=== PATIENT | male | born 1960 | race Caucasian/White ===

== ENCOUNTER → 2017-01-18 | Outpatient (CLI) | payer MEDICARE ==
[~2017-01-18] MED LIST: ADVA250A INH; ALBU1AER INH; COMBAER INH; COUM2TAB PO; DUONI NEB; LIPI40TA PO; LORTA10 PO; PANT20 PO; SERT100 PO; VITA500S3 PO; WARF3TAB PO; Z.0.OXYGEN INH
--- NOTE | 2017-01-19 08:44 | RSPPFT ---
DATE OF PROCEDURE: 01/18/17 COMMENTS: Spirometry with FVC of 3.6 predicted 4.7, FEV1 of 2.3 predicted 3.4, FEV1/FVC ratio 63% predicted 72%. Air trapping is present with RV at 2.7 predicted 2.2. DLCO is 32% of predicted. IMPRESSION: On the basis of the above, patient has an obstructive lung defect with no acute responsiveness to acutely inhaled bronchodilator. Air trapping is noted with decreased DLCO.
== END ==
LOC: HRSP 10:11
PROVIDERS: ATTEND Internal Medicine Pulmonary Disease
DX: J84.10 Pulmonary fibrosis, unspecified (principal)
CPT/HCPCS: 94060; 94620; 94726; 94729

== ENCOUNTER 2017-03-08 08:54 | Emergency (ER) | payer MEDICARE ==
[~2017-03-08] VITALS: Ht 175.3 cm; Wt 107.0 kg
[2017-03-08 08:56] VITALS: BP 130/80; PULSE 94; RESP 17; TEMP 98.9; O2SAT 96
[2017-03-08 09:14] VITALS: BP 116/65; PULSE 79; RESP 18; O2SAT 94
[2017-03-08] MEDS ORDERED: SODIUM CHLORIDE 0.9% FLUSH 10 ML FLUSH IVF PRN (09:30)
[2017-03-08 10:10] LABS: AUTOMATED NEUTROPHIL # 7.2 TH/MM3 (1.8-7.7); BASOPHIL % 0.4 % (0.0-2.0); EOSINOPHIL # 0.1 TH/MM3 (0-0.4); EOSINOPHIL % 0.8 % (0.0-4.0); HEMATOCRIT 43.4 % (39.0-51.0); HEMO FLAGS DIFF FINAL; LYMPH % 20.1 % (9.0-44.0); LYMPHOCYTE # 2.1 TH/MM3 (1.0-4.8); MEAN CELL VOLUME 90.3 FL (80.0-100.0); MEAN CORPUSCULAR HEMOGLOBIN 30.7 PG (27.0-34.0); MONO % 8.7 % (0.0-8.0); PLATELET COUNT 296 TH/MM3 (150-450); RED BLOOD COUNT 4.81 MIL/MM3 (4.50-5.90); RED CELL DISTRIBUTION WIDTH 14.6 % (11.6-17.2); WHITE BLOOD COUNT 10.3 TH/MM3 (4.0-11.0)
--- NOTE | 2017-03-08 10:13 | RADRPT ---
EXAM DATE/TIME: 03/08/2017 09:41 [facility] COMPARISON: CT PULMONARY ANGIOGRAM, April 14, 2015, 12:22. CHEST SINGLE AP, April 14, 2015, 10:33. INDICATIONS : Chest pain. MEDICAL HISTORY : Chronic obstructive pulmonary disease. Emphysema. Idiopathic pulmonary fibrosis SURGICAL HISTORY : None. ENCOUNTER: Initial ACUITY: 1 day PAIN SCORE: 9/10 LOCATION: Bilateral chest FINDINGS: There is slight worsening of diffuse interstitial fibrosis compared to 04/14/15. No acute focal infi ltrate is noted. The heart is stable. Hardware is noted within the lower cervical spine. CONCLUSION: 1. Slight interval worsening of diffuse chronic interstitial fibrosis bilaterally. 2. No acute focal pulmonary or pulmonary vascular congestion. Syd Tee MD on March 08, 2017 at 9:52 Board Certified Radiologist. This report was verified electronically.
[2017-03-08 10:24] LABS: APTT (PATIENT) 49.8 SEC (24.3-30.1); INTERNATIONAL NORMALIZED RATIO 2.6 RATIO; PROTHROMBIN TIME - PATIENT 29.8 SEC (9.8-11.6)
[2017-03-08 10:25] VITALS: BP 136/81; PULSE 67; RESP 18; O2SAT 96
[2017-03-08 10:25] LABS: ANION GAP 11 MEQ/L (5-15); BICARBONATE 19.4 MEQ/L (21.0-32.0); BLOOD UREA NITROGEN 5 MG/DL (7-18); CHLORIDE 111 MEQ/L (98-107); GLOMERULAR FILTRATION RATE 94 ML/MIN (>89); SODIUM (NA) 141 MEQ/L (136-145)
[2017-03-08 10:29] LABS: CREATINE KINASE 626 U/L (39-308)
[2017-03-08 10:41] LABS: CKMB 3.8 NG/ML (0.5-3.6)
--- NOTE | 2017-03-08 12:43 | RADRPT ---
EXAM DATE/TIME: 03/08/2017 11:28 [facility] COMPARISON: US LEG BILATERAL VENOUS DOPPLER, July 07, 2014, 10:29. INDICATIONS : Bilateral leg pain. Patient stated he has been coughing up blood for one week, but it worsened today. MEDICAL HISTORY : Chronic obstructive pulmonary disease. Gastroesophageal reflux disease. Deep venous thrombosis. Migra ine. Anticoagulant therapy, Coumadin. Pulmonary embolism. Emphysema. SURGICAL HISTORY : Lung biopsy. Right hand surgery. Neck surgery. ENCOUNTER: Subsequent ACUITY: 1 week PAIN SCORE: 10/10 LOCATION: Bilateral legs. TECHNIQUE: Venous ultrasound of the left and right leg was performed from the inguinal ligament to the proximal calf. Real-time, color Doppler and spectral tracing, compression and augmentation techniques were us ed. FINDINGS: RIGHT LEG: There is normal compressibility of the deep venous system from the inguinal region to the proximal ca lf. No echogenic clot is seen in the lumen of the common femoral, femoral, popliteal, and posterior tibial veins. There is a normal response of the venous system to proximal and distal augmentation an d respiration. LEFT LEG: There is normal compressibility of the deep venous system from the inguinal region to the proximal ca lf. No echogenic clot is seen in the lumen of the common femoral, femoral, popliteal, and posterior tibial veins. There is a normal response of the venous system to proximal and distal augmentation an d respiration. CONCLUSION: No evidence of deep venous thrombosis within the lower extremities. Syd Tee MD on March 08, 2017 at 12:39 Board Certified Radiologist. This report was verified electronically.
[2017-03-08 13:33] VITALS: BP 136/70; PULSE 72; RESP 18; O2SAT 97
--- NOTE | 2017-03-08 13:52 | PD ---
HPI Chief Complaint: Chest Pain Time Seen by Provider: 09:16 Travel History International Travel<30 days: No Contact w/Intl Traveler<30days: No Traveled to known affect area: No History of Present Illness HPI 56yo M with PMH of PE on coumadin, idiopathy pulmonary fibrosis (follows with finishing lab technician Dr. Patel) presents to the ED with c/o sob since yesterday. Pt has diffuse chest pain that is sharp as well. Pt also has been having hemoptysis for 1 year but more today. Pt uses oxygen at home. Denies any n/v, abdominal pain, weakness or numbness. Pt also complained of bilateral calf pain today. No trauma. PFSH Past Medical History Hx Anticoagulant Therapy: Yes (COUMADIN) Arthritis: Yes Asthma: Yes Autoimmune Disease: No Blood Disorders: No Anxiety: No Depression: Yes Heart Rhythm Problems: No Cancer: No Cardiac Catheterization: No Cardiovascular Problems: Yes High Cholesterol: Yes Chest Pain: Yes Congestive Heart Failure: No COPD: Yes Cerebrovascular Accident: No Diabetes: No Diminished Hearing: No Endocrine: No Gastrointestinal Disorders: Yes GERD: Yes Glaucoma: No Genitourinary: No Headaches: Yes Hepatitis: No Hiatal Hernia: No Hypertension: Yes Immune Disorder: No Kidney Stones: No Musculoskeletal: Yes Neurologic: Yes Psychiatric: No Reproductive: No Respiratory: Yes (PULM FIBROSIS / PULMONARY EMBOLISM) Integumentary: Yes (HX MRSA BILAT AXILLARY) Immunizations Current: Yes Migraines: Yes Myocardial Infarction: No Renal Failure: No Seizures: No Sickle Cell Disease: No Sleep Apnea: Yes Thyroid Disease: No Ulcer: No Past Surgical History Abdominal Surgery: No AICD: No Cardiac Surgery: No Coronary Artery Bypass Graft: No Ear Surgery: No Endocrine Surgery: No Eye Surgery: No Genitourinary Surgery: No Gynecologic Surgery: No Joint Replacement: Yes (MESH AND DISK IN NECK/CAGE) Neurologic Surgery: Yes (DISCS REMOVED FROM NECK 10/04/08) Oral Surgery: No Pacemaker: No Thoracic Surgery: Yes (LUNG BIOPSY IPF RT 2007) Other Surgery: Yes (GANGLION CYST Right WRIST ) Social History Alcohol Use: No Tobacco Use: No Substance Use: No Allergies-Medications (Allergen,Severity, Reaction): Coded Allergies: Biaxin (Verified Allergy, Severe, Anaphylaxis, 03/08/17) Egg Allergy (Verified Allergy, Severe, VOMITING/HIVES, 03/08/17) *MDRO Multi-Drug Resistant Organism (Unverified Adverse Reaction, Unknown , 03/08/17) MRSA 08/2009 arm wound MRSA Screen #1 negative 04/15/2015 Reported Meds & Prescriptions Reported Meds & Active Scripts Active Review of Systems Except as stated in HPI: all other systems reviewed are Neg Physical Exam Narrative GENERAL: 56yo M in mild distress. SKIN: Focused skin assessment warm/dry. HEAD: Atraumatic. Normocephalic. EYES: Pupils equal and round. No scleral icterus. No injection or drainage. ENT: No nasal bleeding or discharge. Mucous membranes pink and moist. NECK: Trachea midline. No JVD. CARDIOVASCULAR: Regular rate and rhythm. No murmur appreciated. RESPIRATORY: + accessory muscle use. Clear to auscultation. Breath sounds equal bilaterally. Saturating 97% on 2L NC. GASTROINTESTINAL: Abdomen soft, non-tender, nondistended. Hepatic and splenic margins not palpable. MUSCULOSKELETAL: No obvious deformities. No clubbing. No cyanosis. No edema. + Bilateral calf tenderness. NEUROLOGICAL: Awake and alert. No obvious cranial nerve deficits. Motor grossly within normal limits. Normal speech. PSYCHIATRIC: Appropriate mood and affect; insight and judgment normal. Data Data Last Documented VS Vital Signs Date Time Temp Pulse Resp B/P Pulse Ox O2 Delivery O2 Flow Rate FiO2 03/08/17 16:58 73 18 132/69 98 Nasal Cannula 2 03/08/17 08:56 98.9 Orders Electrocardiogram (03/08/17 ) Complete Blood Count With Diff (03/08/17 09:24) Basic Metabolic Panel (Bmp) (03/08/17 09:24) B-Type Natriuretic Peptide (03/08/17 09:24) Act Partial Throm Time (Ptt) (03/08/17 09:24) Prothrombin Time / Inr (Pt) (03/08/17 09:24) Ckmb (Isoenzyme) Profile (03/08/17 09:24) Troponin I (03/08/17 09:24) Blood Culture (03/08/17 09:24) Iv Access Insert/Monitor (03/08/17 09:24) Ecg Monitoring (03/08/17 09:24) Oximetry (03/08/17 09:24) Oxygen Administration (03/08/17 09:24) Chest, Single Ap (03/08/17 09:24) Sodium Chloride 0.9% Flush (Ns Flush) (03/08/17 09:30) Lactic Acid Sepsis Protocol (03/08/17 09:24) Type And Screen (03/08/17 09:24) CKMB (03/08/17 09:30) CKMB% (03/08/17 09:30) Us Leg Venous Doppler Bilat (03/08/17 ) Ct Pulmonary Angiogram (03/08/17 ) Iohexol 350 Inj (Omnipaque 350 Inj) (03/08/17 14:21) Labs Laboratory Tests Test 03/08/17 03/08/17 09:30 09:41 White Blood Count 10.3 TH/MM3 Red Blood Count 4.81 MIL/MM3 Hemoglobin 14.8 GM/DL Hematocrit 43.4 % Mean Corpuscular Volume 90.3 FL Mean Corpuscular Hemoglobin 30.7 PG Mean Corpuscular Hemoglobin 34.0 % Concent Red Cell Distribution Width 14.6 % Platelet Count 296 TH/MM3 Mean Platelet Volume 7.3 FL Neutrophils (%) (Auto) 70.0 % Lymphocytes (%) (Auto) 20.1 % Monocytes (%) (Auto) 8.7 % Eosinophils (%) (Auto) 0.8 % Basophils (%) (Auto) 0.4 % Neutrophils # (Auto) 7.2 TH/MM3 Lymphocytes # (Auto) 2.1 TH/MM3 Monocytes # (Auto) 0.9 TH/MM3 Eosinophils # (Auto) 0.1 TH/MM3 Basophils # (Auto) 0.0 TH/MM3 CBC Comment DIFF FINAL Differential Comment Prothrombin Time 29.8 SEC Prothromb Time International 2.6 RATIO Ratio Activated Partial 49.8 SEC Thromboplast Time Sodium Level 141 MEQ/L Potassium Level 4.0 MEQ/L Chloride Level 111 MEQ/L Carbon Dioxide Level 19.4 MEQ/L Anion Gap 11 MEQ/L Blood Urea Nitrogen 5 MG/DL Creatinine 0.85 MG/DL Estimat Glomerular Filtration 94 ML/MIN Rate Random Glucose 95 MG/DL Lactic Acid Level 1.5 mmol/L Calcium Level 8.6 MG/DL Total Creatine Kinase 626 U/L Creatine Kinase MB 3.8 NG/ML Creatine Kinase MB % 0.6 % Troponin I LESS THAN 0.02 NG/ML Blood Type A NEGATIVE Antibody Screen NEGATIVE B-Type Natriuretic Peptide 48 PG/ML MDM Medical Decision Making Medical Screen Exam Complete: Yes Emergency Medical Condition: Yes Interpretation(s) EKG: NSR 73bpm. LAD. TWI III, aVF. Incomplete RBBB pattern. No ST segment elevation or depression. Differential Diagnosis Worsening fibrosis vs. pneumonia vs. DVT vs. PE vs. ACS Narrative Course 56yo M with sob and worsening hemoptysis. Pt is hemodynamically stable with normal heart rate and blood pressure. Saturating at 97% on 2 L NC. Labs reviewed, no leukocytosis. H/H stable at 14.8/43.4. Troponin negative. BNP 48. INR therapeutic at 2.6. CXR showed slight interval worsening of diffuse chronic interstitial fibrosis bilaterally. No active focal pulmonary or pulmonary vascular congestion. Pt has not had any episode of hemoptysis here. Pt reevaluated at bedside and states he is still sob even though he is saturating at 97% on 2L NC. Will do CT angio. Discussed with Dr. Correa who is covering Dr. Patel and he states that pt can follow up with Dr. Patel as outpatient if CT negative. CT angio showed no acute pulmonary emboli. There are severe interstitial fibrosis and emphysematous changes bilaterally. I think pt is at his baseline. US bilateral lower ext showed no DVT. Pt reevaluated at bedside and feels a little better. Instructed pt to follow up with Dr. Patel. Return precautions given. Diagnosis Primary Impression: Emphysema of lung Qualified Code: J43.9 - Pulmonary emphysema, unspecified emphysema type Patient Instructions: General Instructions Departure Forms: Tests/Procedures Additional Instructions: Please follow up with Dr. Patel as outpatient. Please return to the ED if symptoms worsen. Med/Other Pt SpecificInfo: No Change to Meds Disposition: 01 DISCHARGE HOME Condition: Stable Gabbi Vail DO Mar 08, 2017 13:52
[2017-03-08] MEDS ORDERED: IOHEXOL 350 MG/ML 10 ML VIAL (for RAD DIAG) IV ONE (14:21)
--- NOTE | 2017-03-08 14:42 | RADRPT ---
EXAM DATE/TIME: 03/08/2017 14:02 [facility] COMPARISON: CT PULMONARY ANGIOGRAM, April 14, 2015, 12:22. INDICATIONS : Hemoptysis, chest pains for last two days. IV CONTRAST: 50 cc Omnipaque 350 IV RADIATION DOSE: 20.72 CTDIvol (mGy) MEDICAL HISTORY : Hypertension. Chronic obstructive pulmonary disease. Pulmonary fibrosis, lung bx 2007 SURGICAL HISTORY : None. ENCOUNTER: Initial ACUITY: 2 days PAIN SCALE: 2/10 LOCATION: Chest TECHNIQUE: Volumetric scanning of the chest was performed using a pulmonary embolism protocol MIP images were re constructed. Using automated exposure control and adjustment of the mA and/or kV according to patien t size, radiation dose was kept as low as reasonably achievable to obtain optimal diagnostic quality images. FINDINGS: No acute pulmonary emboli are identified on today's examination. Chronic changes within the right lo wer lobe pulmonary artery branches are noted likely related to old pulmonary emboli with attenuation of the distal branches noted. Diffuse chronic interstitial fibrosis is again noted and stable. Emph ysematous changes are noted bilaterally. No acute infiltrate is noted. Scattered mildly prominent p revascular, AP window and subcarinal mediastinal as well as bilateral hilar lymph nodes are noted. Th e heart is enlarged. Coronary artery calcifications are noted. Scattered granulomatous changes are noted bilaterally. CONCLUSION: 1. No acute pulmonary emboli. 2. Chronic attenuation involving the distal branches of the right lower lobe pulmonary arteries likel y a result of previous emboli within these branches. 3. Severe diffuse interstitial fibrosis and emphysematous changes bilaterally. 4. Cardiomegaly and coronary artery calcifications. 5. Mildly prominent mediastinal and bilateral hilar lymphadenopathy which is unchanged. 6. Granulomatous changes within both lungs. Syd Tee MD on March 08, 2017 at 14:25 Board Certified Radiologist. This report was verified electronically.
[2017-03-08 15:47] VITALS: BP 123/72; PULSE 56; RESP 16; O2SAT 97
[2017-03-08 16:58] VITALS: BP 132/69
--- NOTE | 2017-03-09 19:32 | EKG ---
Date Performed: 03/08/2017 Time Performed: 09:12:59 PTAGE: 56 years EKG: Sinus rhythm INCOMPLETE RIGHT BUNDLE BRANCH BLOCK Compared to prior tracing no significant change BORDERLINE ECG PREVIOUS TRACING : 04/15/2015 07.06 DOCTOR: Alexandre Cleveland Interpretating Date/Time 03/09/2017 19:30:51
== END 2017-03-08 17:13 | disposition home or self-care (01) ==
LOC: NEPC 08:54
DX: J43.9 Emphysema, unspecified (principal); R04.2 Hemoptysis; J45.909 Unspecified asthma, uncomplicated; I10 Essential (primary) hypertension; R94.31 Abnormal electrocardiogram [ECG] [EKG]; Z79.01 Long term (current) use of anticoagulants
CPT/HCPCS: 71010; 71275; 80048; 82550; 82552; 83605; 83880; 84484; 85025; 85610; 85730; 86850; 86900; 86901; 87040; 93005; 93970; 99285; Q9967

== ENCOUNTER 2017-08-31 09:57 | Inpatient (IN) | payer MEDICARE ==
[~2017-08-31] VITALS: Ht 175.3 cm; Wt 100.0 kg
[2017-08-31 10:00] VITALS: BP 133/81; PULSE 90; RESP 15; TEMP 98.1; O2SAT 88
[2017-08-31] MEDS ORDERED: PANTOPRAZOLE INJ 80 MG in SODIUM CHLORIDE 0.9% INJ 35 ML IV ONE (10:18)
[2017-08-31 10:24] VITALS: BP 122/82; PULSE 72; RESP 21; TEMP 98.3; O2SAT 94
--- NOTE | 2017-08-31 10:25 | PD ---
HPI Chief Complaint: Bleeding Time Seen by Provider: 10:13 Travel History International Travel<30 days: No Contact w/Intl Traveler<30days: No Traveled to known affect area: No History of Present Illness HPI This is a 57-year-old male who presents to the emergency department with rectal bleeding. His bleeding started last evening associated with diffuse abdominal cramping, some nausea, and some pain with bowel movements. His bleeding is been constant for 2 days, severe, and he's been passing blood clots into the toilet. He also has associated lightheadedness and dizziness. He is on Coumadin for history of pulmonary embolism. He hasn't had a colonoscopy in quite some time. PFSH Past Medical History Hx Anticoagulant Therapy: Yes (COUMADIN) Arthritis: Yes Asthma: Yes Autoimmune Disease: No Blood Disorders: No Anxiety: No Depression: Yes Heart Rhythm Problems: No Cancer: No Cardiac Catheterization: No Cardiovascular Problems: Yes High Cholesterol: Yes Chest Pain: Yes Congestive Heart Failure: No COPD: Yes Cerebrovascular Accident: No Diabetes: No Diminished Hearing: No Endocrine: No Gastrointestinal Disorders: Yes GERD: Yes Glaucoma: No Genitourinary: No Headaches: Yes Hepatitis: No Hiatal Hernia: No Hypertension: Yes Immune Disorder: No Kidney Stones: No Musculoskeletal: Yes Neurologic: Yes Psychiatric: No Reproductive: No Respiratory: Yes (PULM FIBROSIS / PULMONARY EMBOLISM) Integumentary: Yes (HX MRSA BILAT AXILLARY) Immunizations Current: Yes Migraines: Yes Myocardial Infarction: No Renal Failure: No Seizures: No Sickle Cell Disease: No Sleep Apnea: Yes Thyroid Disease: No Ulcer: No Past Surgical History Abdominal Surgery: No AICD: No Cardiac Surgery: No Coronary Artery Bypass Graft: No Ear Surgery: No Endocrine Surgery: No Eye Surgery: No Genitourinary Surgery: No Gynecologic Surgery: No Joint Replacement: Yes (MESH AND DISK IN NECK/CAGE) Neurologic Surgery: Yes (DISCS REMOVED FROM NECK 10/04/08) Oral Surgery: No Pacemaker: No Thoracic Surgery: Yes (LUNG BIOPSY IPF RT 2007) Other Surgery: Yes (GANGLION CYST Right WRIST ) Social History Alcohol Use: No Tobacco Use: No Substance Use: No Allergies-Medications (Allergen,Severity, Reaction): Coded Allergies: clarithromycin (Unverified Allergy, Severe, Anaphylaxis, 08/31/17) egg (Unverified Allergy, Severe, VOMITING/HIVES, 08/31/17) *MDRO Multi-Drug Resistant Organism (Unverified Adverse Reaction, Unknown , 08/31/17) MRSA 08/2009 arm wound MRSA Screen #1 negative 04/15/2015 Reported Meds & Prescriptions Reported Meds & Active Scripts Active Reported Albuterol Neb (Albuterol Sulfate) 1.25 Mg/3 Ml Neb 1.25 Mg NEB Q6HR NEB PRN Proair Hfa 8.5 GM Inh (Albuterol Sulfate) 90 Mcg/Act Aer 2 Puff INH Q4-6H PRN 108 mcg/actuation Advair Diskus Inh (Fluticasone-Salmeterol Inh) 250-50 Mcg/Blist Aer 1 Puff INH BID Rinse mouth after use. Vitamin B12 (Cyanocobalamin (Vitamin B-12)) 2,500 Mcg Tab.chew Zoloft (Sertraline HCl) 100 Mg Tab 100 Mg PO DAILY Topiramate 200 Mg Tab 200 Mg PO DAILY Hydrocodone-Acetaminophen 10-325 mg Tab 1 Tab PO Q6H PRN Coumadin (Warfarin) 4 Mg Tab 4 Mg PO DAILY Review of Systems Except as stated in HPI: all other systems reviewed are Neg Physical Exam Narrative GENERAL:Well appearing, no acute distress SKIN: Focused skin assessment warm and dry. HEAD: Atraumatic. Normocephalic. EYES: Pupils equal and round. No injection or drainage. ENT: Moist mucous membranes NECK: Trachea midline. CARDIOVASCULAR: Regular rate and rhythm. No murmur appreciated. RESPIRATORY: Clear to auscultation. Breath sounds equal bilaterally. GASTROINTESTINAL: Abdomen soft, diffusely tender to palpation with no rebound or guarding. MUSCULOSKELETAL: No obvious deformities. NEUROLOGICAL: Awake and alert. No obvious cranial nerve deficits. Moving all extremities. PSYCHIATRIC: Appropriate mood and affect; insight and judgment normal. Data Data Last Documented VS Vital Signs Date Time Temp Pulse Resp B/P (MAP) Pulse Ox O2 Delivery O2 Flow Rate FiO2 08/31/17 10:24 98.3 72 21 122/82 (95) 94 Nasal Cannula 2.00 Orders Orders Complete Blood Count With Diff (08/31/17 10:18) Comprehensive Metabolic Panel (08/31/17 10:18) Prothrombin Time / Inr (Pt) (08/31/17 10:18) Act Partial Throm Time (Ptt) (08/31/17 10:18) Type And Screen (08/31/17 10:18) Ecg Monitoring (08/31/17 10:18) Iv Access Insert/Monitor (08/31/17 10:18) Oximetry (08/31/17 10:18) Ondansetron Inj (Zofran Inj) (08/31/17 10:30) Sodium Chloride 0.9% Flush (Ns Flush) (08/31/17 10:30) Sodium Chloride 0.9... W/Pantoprazole In (08/31/17 10:18) Sodium Chloride 0.9... W/Pantoprazole In (08/31/17 10:18) Morphine Inj (Morphine Inj) (08/31/17 10:30) Ct Abd/Pel W Iv Contrast(Rout) (08/31/17 ) Electrocardiogram (08/31/17 ) Iohexol 350 Inj (Omnipaque 350 Inj) (08/31/17 12:12) Admit To Inpatient (08/31/17 ) Code Status (08/31/17 12:42) Vital Signs (Adult) Q4H (08/31/17 12:42) Activity Oob With Assistance (08/31/17 12:42) Sodium Chloride 0.9% Flush (Ns Flush) (08/31/17 12:45) Sodium Chloride 0.9% Flush (Ns Flush) (08/31/17 21:00) Acetaminophen (Tylenol) (08/31/17 12:45) Ondansetron Inj (Zofran Inj) (08/31/17 12:45) Temazepam (Restoril) (08/31/17 12:45) Basic Metabolic Panel (Bmp) (09/01/17 06:00) Chest, Single Ap (08/31/17 12:42) Electrocardiogram (08/31/17 12:42) Scd Bilateral/Knee High SHU.BID (08/31/17 12:42) Naloxone Inj (Narcan Inj) (08/31/17 12:45) Magnesium Hydroxide Liq (Milk Of Magnesi (08/31/17 12:45) Inpatient Certification (08/31/17 ) Diet Npo Except Meds (09/01/17 Breakfast) Complete Blood Count With Diff (08/31/17 21:00) Complete Blood Count With Diff (09/01/17 08:00) Complete Blood Count With Diff (09/01/17 12:00) Complete Blood Count With Diff (09/01/17 17:00) Complete Blood Count With Diff (09/01/17 21:00) Complete Blood Count With Diff (09/02/17 08:00) Complete Blood Count With Diff (09/02/17 12:00) Complete Blood Count With Diff (09/02/17 17:00) Complete Blood Count With Diff (09/02/17 21:00) Diet Clear Liquid (08/31/17 Lunch) Labs Laboratory Tests Test 08/31/17 10:30 White Blood Count 10.5 TH/MM3 Red Blood Count 5.16 MIL/MM3 Hemoglobin 16.0 GM/DL Hematocrit 46.6 % Mean Corpuscular Volume 90.4 FL Mean Corpuscular Hemoglobin 31.0 PG Mean Corpuscular Hemoglobin Concent 34.3 % Red Cell Distribution Width 15.7 % Platelet Count 318 TH/MM3 Mean Platelet Volume 6.8 FL Neutrophils (%) (Auto) 71.3 % Lymphocytes (%) (Auto) 21.0 % Monocytes (%) (Auto) 6.0 % Eosinophils (%) (Auto) 1.2 % Basophils (%) (Auto) 0.5 % Neutrophils # (Auto) 7.5 TH/MM3 Lymphocytes # (Auto) 2.2 TH/MM3 Monocytes # (Auto) 0.6 TH/MM3 Eosinophils # (Auto) 0.1 TH/MM3 Basophils # (Auto) 0.0 TH/MM3 CBC Comment DIFF FINAL Differential Comment Prothrombin Time 27.8 SEC Prothromb Time International Ratio 2.4 RATIO Activated Partial Thromboplast Time 51.5 SEC Blood Urea Nitrogen 8 MG/DL Creatinine 0.75 MG/DL Random Glucose 94 MG/DL Total Protein 7.8 GM/DL Albumin 3.3 GM/DL Calcium Level 9.0 MG/DL Alkaline Phosphatase 75 U/L Aspartate Amino Transf (AST/SGOT) 16 U/L Alanine Aminotransferase (ALT/SGPT) 14 U/L Total Bilirubin 0.3 MG/DL Sodium Level 138 MEQ/L Potassium Level 4.2 MEQ/L Chloride Level 105 MEQ/L Carbon Dioxide Level 24.2 MEQ/L Anion Gap 9 MEQ/L Estimat Glomerular Filtration Rate 108 ML/MIN MDM Medical Decision Making Medical Screen Exam Complete: Yes Emergency Medical Condition: Yes Interpretation(s) Afebrile, no tachycardia, normotensive No leukocytosis Electrolytes are reassuring INR is 2.4 Differential Diagnosis Upper GI bleed, lower GI bleed, anemia, colitis Narrative Course This is a 57-year-old male who presents to the emergency department with GI bleeding that started yesterday and has persisted throughout the night, associated with diffuse abdominal discomfort. He has a history of pulmonary embolism and is on Coumadin. He was placed on a monitor and an IV was established. Labs are obtained which were reassuring. Patient showed me several photographs of the amount of blood in his toilet and it does look like he had copious amounts of dark blood. I think it's reasonable to observe him and have him seen by GI and trend hemoglobins. Physician Communication Physician Communication Discussed with Dr. Ramos Diagnosis Primary Impression: GI bleed Qualified Codes: K92.2 - Gastrointestinal hemorrhage, unspecified Admitting Information Admitting Physician Requests: Admit Ev Reynolds MD Aug 31, 2017 10:25
[2017-08-31] MEDS ORDERED: MORPHINE SULFATE 4 MG/ML INJ IV PUSH ONE (10:30)
[2017-08-31] MEDS ORDERED: ONDANSETRON HCL 4 MG/2 ML VIAL IVP ONE (10:30)
[2017-08-31] MEDS ORDERED: SODIUM CHLORIDE 0.9% FLUSH 10 ML FLUSH IVF PRN (10:30)
[2017-08-31 10:45] LABS: AUTOMATED NEUTROPHIL # 7.5 TH/MM3 (1.8-7.7); BASOPHIL % 0.5 % (0.0-2.0); EOSINOPHIL # 0.1 TH/MM3 (0-0.4); EOSINOPHIL % 1.2 % (0.0-4.0); HEMATOCRIT 46.6 % (39.0-51.0); HEMO FLAGS DIFF FINAL; LYMPHOCYTE # 2.2 TH/MM3 (1.0-4.8); MEAN CELL VOLUME 90.4 FL (80.0-100.0); MEAN CORPUSCULAR HGB CONC 34.3 % (32.0-36.0); NEUT % 71.3 % (16.0-70.0); PLATELET COUNT 318 TH/MM3 (150-450); RED BLOOD COUNT 5.16 MIL/MM3 (4.50-5.90); RED CELL DISTRIBUTION WIDTH 15.7 % (11.6-17.2); WHITE BLOOD COUNT 10.5 TH/MM3 (4.0-11.0)
[2017-08-31 10:55] LABS: APTT (PATIENT) 51.5 SEC (24.3-30.1); INTERNATIONAL NORMALIZED RATIO 2.4 RATIO; PROTHROMBIN TIME - PATIENT 27.8 SEC (9.8-11.6)
[2017-08-31] MEDS ORDERED: HYDR-3583 PO (10:57)
[2017-08-31] MEDS ORDERED: ALBUAER3 INH (10:57)
[2017-08-31] MEDS ORDERED: CYAN25005 (10:57)
[2017-08-31] MEDS ORDERED: TOPI200T7 PO (10:57)
[2017-08-31] MEDS ORDERED: ALBU1.25 NEB (10:57)
[2017-08-31] MEDS ORDERED: ADVA250A INH (10:57)
[2017-08-31] MEDS ORDERED: ZOLO100T PO (10:57)
[2017-08-31] MEDS ORDERED: COUM4TAB PO (10:57)
[2017-08-31] MEDS: PANTOPRAZOLE INJ 80 MG in SODIUM CHLORIDE 0.9% INJ 100 ML IV SCH ×2 (10:59→21:06)
[2017-08-31 11:06] LABS: ALKALINE PHOSPHATASE 75 U/L (45-117); ALT (GPT) 14 U/L (12-78); TOTAL BILIRUBIN ADULT 0.3 MG/DL (0.2-1.0)
[2017-08-31 11:08] LABS: ANION GAP 9 MEQ/L (5-15); AST (GOT) 16 U/L (15-37); BICARBONATE 24.2 MEQ/L (21.0-32.0); BLOOD UREA NITROGEN 8 MG/DL (7-18); CHLORIDE 105 MEQ/L (98-107); GLOMERULAR FILTRATION RATE 108 ML/MIN (>89); POTASSIUM 4.2 MEQ/L (3.5-5.1); SODIUM (NA) 138 MEQ/L (136-145)
[2017-08-31] MEDS ORDERED: IOHEXOL 350 MG/ML 10 ML VIAL (for RAD DIAG) IVCONTRAST ONE (12:12)
--- NOTE | 2017-08-31 12:20 | RADRPT ---
EXAM DATE/TIME: 08/31/2017 11:45 [facility] COMPARISON: CT ABDOMEN & PELVIS W CONTRAST, July 07, 2014, 20:15. INDICATIONS : Rectal bleeding with abdominal cramping. IV CONTRAST: 95 cc Omnipaque 350 (iohexol) IV ORAL CONTRAST: No oral contrast ingested. RADIATION DOSE: 18.80 CTDIvol (mGy) MEDICAL HISTORY : Hypertension. Chronic obstructive pulmonary disease. SURGICAL HISTORY : None. ENCOUNTER: Initial ACUITY: 2 days PAIN SCALE: 4/10 LOCATION: Bilateral abdomen TECHNIQUE: Volumetric scanning of the abdomen and pelvis was performed. Using automated exposure control and ad justment of the mA and/or kV according to patient size, radiation dose was kept as low as reasonably achievable to obtain optimal diagnostic quality images. DICOM format image data is available electro nically for review and comparison. FINDINGS: Course interstitial changes in both lung base is stable in the interval. The liver, spleen, pancreas and adrenals are unremarkable There is symmetrical renal function Cecum and terminal ileum unremarkable Pelvic contents are unremarkable. Abdominal wall is intact Mild degenerative changes lumbar spine. CONCLUSION: Negative for an acute process.. Parish Tapia MD FACR on August 31, 2017 at 12:18 Board Certified Radiologist. This report was verified electronically.
[2017-08-31] MEDS ORDERED: MAGNESIUM HYDROXIDE SUSP 30 ML CUP PO PRN (12:45)
[2017-08-31] MEDS ORDERED: ACETAMINOPHEN 325 MG TAB PO PRN (12:45)
[2017-08-31] MEDS ORDERED: SODIUM CHLORIDE 0.9% FLUSH 10 ML FLUSH IV FLUSH PRN (12:45)
[2017-08-31] MEDS ORDERED: NALOXONE HCL 0.4 MG/ML AMP IV PUSH PRN (12:45)
[2017-08-31] MEDS ORDERED: TEMAZEPAM 15 MG CAP PO PRN (12:45)
[2017-08-31] MEDS ORDERED: ONDANSETRON HCL 4 MG/2 ML VIAL IVP PRN (12:45)
[2017-08-31] MEDS ORDERED: RESP: ALBUTEROL 2.5 MG/IPRATROPIUM 0.5 MG NEB (PRN) NEB (13:00)
--- NOTE | 2017-08-31 13:01 | HHI.HP ---
HPI Service [facility] Hospitalists Primary Care Physician Jeff Uriarte DO Admission Diagnosis Chief Complaint: retal bleeding Travel History International Travel<30 Days: No Contact w/Intl Traveler <30 Da: No Traveled to Known Affected Are: No History of Present Illness This is a 57-year-old male patient with past medical history which includes sleep apnea does use CPAP, idiopathic pulmonary fibrosis, emphysema, pulmonary embolism bilaterally, DVT, hypercoagulation, multiple concussions, migraine, idiopathic peripheral neuropathy, cervical HNP, lumbar H&P, B12 deficiency, alcohol abuse in remission, GERD, gastroparesis, hyperlipidemia, obesity and colon polyps (adenoma). Patient presents to the ER today with rectal bleeding. Patient reports that his bleeding started last evening associated with diffuse abdominal cramping, some nausea, and some pain with bowel movements. Patient has also been passing blood clots into the toilet. He also has associated lightheadedness and dizziness. He is on Coumadin for history of pulmonary embolism and hypercoagulable state. His last colonoscopy was 2010. Review of Systems Constitutional: COMPLAINS OF: Fatigue, DENIES: Fever, Chills Eyes: DENIES: Blurred vision, Diplopia, Vision loss Respiratory: DENIES: Cough, Sputum production, Shortness of breath Cardiovascular: DENIES: Chest pain, Palpitations, Lower Extremity Edema Gastrointestinal: COMPLAINS OF: Abdominal pain, Bloody stools, BRB per rectum, Nausea Neurologic: DENIES: Abnormal gait, Headache, Localized weakness Psychiatric: COMPLAINS OF: Depression (well controlled), DENIES: Confusion Past Family Social History Past Medical History sleep apnea does use CPAP, idiopathic pulmonary fibrosis, emphysema, pulmonary embolism bilaterally, DVT, hypercoagulation, multiple concussions, migraine, idiopathic peripheral neuropathy, cervical HNP, lumbar H&P, B12 deficiency, alcohol abuse in remission, GERD, gastroparesis, hyperlipidemia, obesity and colon polyps (adenoma). Past Surgical History Nuclear stress test in March 2015 showing mild global hypokinesis with EF of 47%, colonoscopy in 2010 with colon polypectomy (adenoma), anterior cervical fusion 2007, removal of right ganglion cyst and from right wrist 2003, laminectomy lumbar 2001 Reported Medications Albuterol Neb (Albuterol Sulfate) 1.25 Mg/3 Ml Neb 1.25 Mg NEB Q6HR NEB PRN Proair Hfa 8.5 GM Inh (Albuterol Sulfate) 90 Mcg/Act Aer 2 Puff INH Q4-6H PRN 108 mcg/actuation Advair Diskus Inh (Fluticasone-Salmeterol Inh) 250-50 Mcg/Blist Aer 1 Puff INH BID Rinse mouth after use. Vitamin B12 (Cyanocobalamin (Vitamin B-12)) 2,500 Mcg Tab.chew Zoloft (Sertraline HCl) 100 Mg Tab 100 Mg PO DAILY Topiramate 200 Mg Tab 200 Mg PO DAILY Hydrocodone-Acetaminophen 10-325 mg Tab 1 Tab PO Q6H PRN Coumadin (Warfarin) 4 Mg Tab 4 Mg PO DAILY Allergies: Coded Allergies: clarithromycin (Unverified Allergy, Severe, Anaphylaxis, 08/31/17) egg (Unverified Allergy, Severe, VOMITING/HIVES, 08/31/17) *MDRO Multi-Drug Resistant Organism (Unverified Adverse Reaction, Unknown , 08/31/17) MRSA 08/2009 arm wound MRSA Screen #1 negative 04/15/2015 Active Ordered Medications Current Medications Medications (Trade) Dose Ordered Sig/Juan Route Start Time Stop Time Status Last Admin (NS Flush) 2 ml UNSCH PRN IVF 08/31/17 10:30 Pantoprazole Sodium 80 mg/ Sodium Chloride 100 ml @ 10 mls/hr Q10H IV 08/31/17 10:18 08/31/17 10:59 (NS Flush) 2 ml UNSCH PRN IV FLUSH 08/31/17 12:45 UNV (NS Flush) 2 ml BID IV FLUSH 08/31/17 21:00 UNV (Tylenol) 650 mg Q4H PRN PO 08/31/17 12:45 UNV (Zofran Inj) 4 mg Q6H PRN IVP 08/31/17 12:45 UNV (Restoril) 15 mg HS PRN PO 08/31/17 12:45 UNV (Narcan Inj) 0.4 mg UNSCH PRN IV PUSH 08/31/17 12:45 UNV (Milk Of Magnesia Liq) 30 ml Q12H PRN PO 08/31/17 12:45 UNV Family History Father is alive in his 80s with history of prostate cancer diabetes mellitus and hypertension Mother at 67 with history of lung cancer and CVA Social History History of EtOH abuse remission 10+ years History of tobacco use quit 2009 prior to that had a [id number] history Physical Exam Vital Signs Vital Signs Date Time Temp Pulse Resp B/P (MAP) Pulse Ox O2 Delivery O2 Flow Rate FiO2 08/31/17 10:24 98.3 72 21 122/82 (95) 94 Nasal Cannula 2.00 08/31/17 10:00 98.1 90 15 133/81 (98) 88 Physical Exam GENERAL: This is a well-nourished, well-developed patient, in no apparent distress. SKIN: No rashes, ecchymoses or lesions. Cool and dry. HEAD: Atraumatic. Normocephalic. No temporal or scalp tenderness. EYES: Pupils equal round and reactive. Extraocular motions intact. No scleral icterus. No injection or drainage. ENT: Nose without bleeding, purulent drainage or septal hematoma. Throat without erythema, tonsillar hypertrophy or exudate. Uvula midline. Airway patent. NECK: Trachea midline. No JVD or lymphadenopathy. Supple, nontender, no meningeal signs. CARDIOVASCULAR: Regular rate and rhythm without murmurs, gallops, or rubs. RESPIRATORY: Clear to auscultation. Breath sounds equal bilaterally. No wheezes , rales, or rhonchi. GASTROINTESTINAL: Abdomen soft, non-tender, nondistended. No hepato-splenomegaly , or palpable masses. No guarding. MUSCULOSKELETAL: Extremities without clubbing, cyanosis, or edema. No joint tenderness, effusion, or edema noted. No calf tenderness. Negative Homans sign bilaterally. NEUROLOGICAL: Awake and alert. Cranial nerves II through XII intact. Motor and sensory grossly within normal limits. Five out of 5 muscle strength in all muscle groups. Normal speech. Laboratory Laboratory Tests Test 08/31/17 10:30 White Blood Count 10.5 Red Blood Count 5.16 Hemoglobin 16.0 Hematocrit 46.6 Mean Corpuscular Volume 90.4 Mean Corpuscular Hemoglobin 31.0 Mean Corpuscular Hemoglobin Concent 34.3 Red Cell Distribution Width 15.7 Platelet Count 318 Mean Platelet Volume 6.8 Neutrophils (%) (Auto) 71.3 Lymphocytes (%) (Auto) 21.0 Monocytes (%) (Auto) 6.0 Eosinophils (%) (Auto) 1.2 Basophils (%) (Auto) 0.5 Neutrophils # (Auto) 7.5 Lymphocytes # (Auto) 2.2 Monocytes # (Auto) 0.6 Eosinophils # (Auto) 0.1 Basophils # (Auto) 0.0 CBC Comment DIFF FINAL Differential Comment Prothrombin Time 27.8 Prothromb Time International Ratio 2.4 Activated Partial Thromboplast Time 51.5 Blood Urea Nitrogen 8 Creatinine 0.75 Random Glucose 94 Total Protein 7.8 Albumin 3.3 Calcium Level 9.0 Alkaline Phosphatase 75 Aspartate Amino Transf (AST/SGOT) 16 Alanine Aminotransferase (ALT/SGPT) 14 Total Bilirubin 0.3 Sodium Level 138 Potassium Level 4.2 Chloride Level 105 Carbon Dioxide Level 24.2 Anion Gap 9 Estimat Glomerular Filtration Rate 108 Result Diagram: 08/31/17 1030 08/31/17 1030 Imaging Last Impressions Chest X-Ray 08/31/17 1242 Signed Impressions: Service Date/Time: Thursday, August 31, 2017 12:56 - CONCLUSION: 1. Diffuse interstitial fibrosis concerning for IPF. Akshat Tapia MD Abdomen/Pelvis CT 08/31/17 0000 Signed Impressions: Service Date/Time: Thursday, August 31, 2017 11:45 - CONCLUSION: Negative for an acute process.. Parish Tapia MD FACR Caprini VTE Risk Assessment Caprini VTE Risk Assessment: Mod/High Risk (score >= 2) Caprini Risk Assessment Model Point Value = 1 Point Value = 2 Point Value = 3 Point Value = 5 Age 41-60 Minor surgery BMI > 25 kg/m2 Swollen legs Varicose veins or History of unexplained or recurrent spontaneous Oral contraceptives or hormone replacement Sepsis (< 1 month) Serious lung disease, including pneumonia (< 1 month) Abnormal pulmonary function Acute myocardial infarction Congestive heart failure (< 1 month) History of inflammatory bowel disease Medical patient at bed rest Age 61-74 Arthroscopic surgery Major open surgery (> 45 min) Laparoscopic surgery (> 45 min) Malignancy Confined to bed (> 72 hours) Immobilizing plaster cast Central venous access Age >= 75 History of VTE Family history of VTE Factor V Leiden Prothrombin [id number] Lupus anticoagulant Anticardiolipin antibodies Elevated serum homocysteine Heparin-induced thrombocytopenia Other congenital or acquired thrombophilia Stroke (< 1 month) Elective arthroplasty Hip, pelvis, or leg fracture Acute spinal cord injury (< 1 month) Prophylaxis Regimen Total Risk Factor Score Risk Level Prophylaxis Regimen 0-1 Low Early ambulation 2 Moderate Order ONE of the following: *Sequential Compression Device (SCD) *Heparin 5000 units SQ BID 3-4 Higher Order ONE of the following medications: *Heparin 5000 units SQ TID *Enoxaparin/Lovenox 40 mg SQ daily (WT < 150 kg, CrCl > 30 mL/min) *Enoxaparin/Lovenox 30 mg SQ daily (WT < 150 kg, CrCl > 10-29 mL/min) *Enoxaparin/Lovenox 30 mg SQ BID (WT < 150 kg, CrCl > 30 mL/min) AND/OR *Sequential Compression Device (SCD) 5 or more Highest Order ONE of the following medications: *Heparin 5000 units SQ TID (Preferred with Epidurals) *Enoxaparin/Lovenox 40 mg SQ daily (WT < 150 kg, CrCl > 30 mL/min) *Enoxaparin/Lovenox 30 mg SQ daily (WT < 150 kg, CrCl > 10-29 mL/min) *Enoxaparin/Lovenox 30 mg SQ BID (WT < 150 kg, CrCl > 30 mL/min) AND *Sequential Compression Device (SCD) Assessment and Plan Problem List: (1) Lower GI bleed ICD Codes: K92.2 - Gastrointestinal hemorrhage, unspecified Plan: Lower GI bleed Patient reports rectal bleeding with clots for the past two days associated with generalized abdominal cramping no active bleeding from rectum at this time occult stool pending serial H&H protonix drip GI consult discussed with GI HOSPITAL NURSING ASSISTANT patient given clear liquids today NPO after midnight IVF idiopathic pulmonary fibrosis, emphysema continue home regiment Hypercoagulation pulmonary embolism bilaterally, DVT hold Coumadin at this time recheck INR in AM DVT prophylaxis with SCDs avoid chemical DVT prophylaxis due to GI bleed (2) Hypercoagulation syndrome ICD Codes: D68.59 - Other primary thrombophilia (3) Idiopathic interstitial fibrosis of lung syndrome ICD Codes: J84.112 - Idiopathic interstitial fibrosis of lung syndrome Status: Acute (4) COPD (chronic obstructive pulmonary disease) ICD Codes: J44.9 - COPD (chronic obstructive pulmonary disease) Status: Acute (5) Depression ICD Codes: F32.9 - Depression Status: Acute (6) Seizure disorder ICD Codes: G40.909 - Epilepsy, unspecified, not intractable, without status epilepticus Assessment and Plan Patient examined. Assessment and plan formulated with Ida GOMEZ I agree with the above. Physician Certification 2 Midnight Certification Type: Admission for Inpatient Services Order for Inpatient Services The services are ordered in accordance with Medicare regulations or non- Medicare payer requirements, as applicable. In the case of services not specified as inpatient-only, they are appropriately provided as inpatient services in accordance with the 2-midnight benchmark. Estimated LOS (days): 3 days is the estimated time the patient will need to remain in the hospital, assuming treatment plan goals are met and no additional complications. Post-Hospital Plan: Home Ida Gamboa Aug 31, 2017 13:01 Daniel Ramos DO Sep 01, 2017 13:38
--- NOTE | 2017-08-31 13:19 | RADRPT ---
EXAM DATE/TIME: 08/31/2017 12:56 [facility] COMPARISON: CT PULMONARY ANGIOGRAM, March 08, 2017, 14:02. CHEST SINGLE AP, March 08, 2017, 9:41. INDICATIONS : Chest pain, headaches, and bloody stool. MEDICAL HISTORY : Chronic obstructive pulmonary disease. Gastroesophageal reflux disease. Deep venous thrombosis. Migra ine. Anticoagulant therapy, Coumadin. Pulmonary embolism. Emphysema. SURGICAL HISTORY : Lung biopsy. Right hand surgery. Neck surgery. ENCOUNTER: Initial ACUITY: 2 days PAIN SCORE: 10/10 LOCATION: Bilateral chest FINDINGS: The heart is normal size. The exam demonstrates diffuse interstitial fibrotic changes most notably pe ripheral and in the lower lobes. Exam is concerning for IPF. The study is compared to previous of 02/18 and appears similar. There are postsurgical changes in the cervical spine. CONCLUSION: 1. Diffuse interstitial fibrosis concerning for IPF. Akshat Tapia MD on August 31, 2017 at 13:16 Board Certified Radiologist. This report was verified electronically.
[2017-08-31 14:10] VITALS: BP 94/56; PULSE 60; RESP 18; TEMP 98.3; O2SAT 94
[2017-08-31] MEDS ORDERED: ALBUTEROL SULFATE 90 MCG/ACT HFA 8 GM INHALER INH PRN (15:15)
[2017-08-31] MEDS ORDERED: RESP: ALBUTEROL 1.25 MG/3 ML NEB (PRN) NEB (15:15)
[2017-08-31] MEDS: 1/2 NS + KCL 20 MEQ INJ 1,000 ML IV SCH (15:15)
[2017-08-31] MEDS ORDERED: ACETAMINOPHEN/HYDROcodone 325 MG/10 MG TAB PO PRN (15:15)
[2017-08-31 15:16] VITALS: BP 101/55; PULSE 70; RESP 17; O2SAT 94
--- NOTE | 2017-08-31 15:57 | EKG ---
Date Performed: 08/31/2017 Time Performed: 11:00:39 PTAGE: 57 years EKG: Sinus rhythm INCOMPLETE RIGHT BUNDLE BRANCH BLOCK ABNORMAL ECG No significant change from prior electrocardiogram . PREVIOUS TRACING : 03/08/2017 09.12 DOCTOR: Ziggy Dennison Interpretating Date/Time 08/31/2017 15:56:26
[2017-08-31 19:59] VITALS: BP 107/69; PULSE 56; RESP 17; TEMP 98.1; O2SAT 95
[2017-08-31] MEDS: SODIUM CHLORIDE 0.9% FLUSH 10 ML FLUSH IV FLUSH SCH (21:00)
[2017-08-31] MEDS: BUDESONIDE-FORMOTEROL 160/4.5 MCG INHALER INH SCH (21:30)
[2017-08-31 22:34] LABS: AUTOMATED NEUTROPHIL # 4.6 TH/MM3 (1.8-7.7); BASOPHIL % 0.5 % (0.0-2.0); EOSINOPHIL # 0.2 TH/MM3 (0-0.4); EOSINOPHIL % 2.2 % (0.0-4.0); HEMATOCRIT 43.7 % (39.0-51.0); HEMO FLAGS DIFF FINAL; LYMPHOCYTE # 2.6 TH/MM3 (1.0-4.8); MEAN CELL VOLUME 91.4 FL (80.0-100.0); MEAN CORPUSCULAR HGB CONC 32.9 % (32.0-36.0); MONO % 8.6 % (0.0-8.0); NEUT % 56.7 % (16.0-70.0); PLATELET COUNT 298 TH/MM3 (150-450); RED BLOOD COUNT 4.78 MIL/MM3 (4.50-5.90); RED CELL DISTRIBUTION WIDTH 15.3 % (11.6-17.2); WHITE BLOOD COUNT 8.1 TH/MM3 (4.0-11.0)
[2017-09-01] VITALS (7 sets, daily range): BP systolic 92–136; BP diastolic 60–74; PULSE 46–81; RESP 16–18; TEMP 96.3–98.1; O2SAT 91–94
[2017-09-01] MEDS: 1/2 NS + KCL 20 MEQ INJ 1,000 ML IV SCH ×2 (04:00→14:17)
[2017-09-01 05:02] LABS: INTERNATIONAL NORMALIZED RATIO 2.6 RATIO; PROTHROMBIN TIME - PATIENT 29.7 SEC (9.8-11.6)
[2017-09-01 05:23] LABS: BICARBONATE 27.9 MEQ/L (21.0-32.0); POTASSIUM 4.3 MEQ/L (3.5-5.1)
[2017-09-01] MEDS: PANTOPRAZOLE INJ 80 MG in SODIUM CHLORIDE 0.9% INJ 100 ML IV SCH ×2 (06:50→14:18)
[2017-09-01] MEDS: SODIUM CHLORIDE 0.9% FLUSH 10 ML FLUSH IV FLUSH SCH ×2 (09:00→21:00)
[2017-09-01 12:24] LABS: AUTOMATED NEUTROPHIL # 8.7 TH/MM3 (1.8-7.7); BASOPHIL # 0.1 TH/MM3 (0-0.2); BASOPHIL % 0.5 % (0.0-2.0); EOSINOPHIL # 0.1 TH/MM3 (0-0.4); EOSINOPHIL % 1.3 % (0.0-4.0); HEMATOCRIT 44.4 % (39.0-51.0); HEMO FLAGS DIFF FINAL; LYMPH % 16.1 % (9.0-44.0); LYMPHOCYTE # 1.8 TH/MM3 (1.0-4.8); MEAN CELL VOLUME 91.9 FL (80.0-100.0); MEAN CORPUSCULAR HEMOGLOBIN 30.6 PG (27.0-34.0); MEAN CORPUSCULAR HGB CONC 33.3 % (32.0-36.0); MONO % 5.8 % (0.0-8.0); NEUT % 76.3 % (16.0-70.0); PLATELET COUNT 280 TH/MM3 (150-450); RED BLOOD COUNT 4.83 MIL/MM3 (4.50-5.90); RED CELL DISTRIBUTION WIDTH 14.8 % (11.6-17.2); WHITE BLOOD COUNT 11.4 TH/MM3 (4.0-11.0)
--- NOTE | 2017-09-01 13:19 | PD.CONS ---
HPI History of Present Illness This is a 57 year old male patient who is on Coumadin for history of pulmonary embolism and presented to the emergency room for evaluation of rectal bleeding. He states that this began two days ago and consisted of a combination of " dark red blood, black, and brown blood." He reports that he had 3 episodes of this and the last episode was 2am yesterday am. He had some associated nausea without vomiting. He has occasional heartburn, but nothing on a regular basis. He occasionally has bright red blood on the toilet tissue when he wipes himself, but has never had any significant GI bleeding in the past. Initially, he had a mild to moderate burning pain that was in his midabdomen and radiated throughout his entire abdomen- but states this has since resolved. He denies any recent travel, suspicious food, or sick contacts. EGD (08/04/15)---> mild gastritis in the entire examined stomach; biopsy was performed. Normal endoscopy otherwise. Retroflexed views revealed no abnormalities. 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 His last colonoscopy was about 4 years ago and he reports that he had a polyp removed. (Sirisha Rand) PFSH Past Medical History Arthritis Asthma COPD Emphysema GERD Hyperlipidemia EDA Pulmonary fibrosis Bilateral pulmonary embolism, DVT Migraine headaches Peripheral neuropathy B12 Deficiency Past Surgical History Lung biopsy Cervical vertebral fusion EGD Colonoscopy Laminectomy Wrist excision of ganglion EGD Colonoscopy in 2010 with polypectomy (Sirisha Rand) Coded Allergies: clarithromycin (Unverified Allergy, Severe, Anaphylaxis, 08/31/17) egg (Unverified Allergy, Severe, VOMITING/HIVES, 08/31/17) *MDRO Multi-Drug Resistant Organism (Unverified Adverse Reaction, Unknown , 08/31/17) MRSA 08/2009 arm wound MRSA Screen #1 negative 04/15/2015 Medications Allergies Coded Allergies Type Severity Reaction Last Updated Verified clarithromycin Allergy Severe Anaphylaxis 08/31/17 No egg Allergy Severe VOMITING/HIVES 08/31/17 No *MDRO Multi-Drug Resistant Organism Adverse Reaction Unknown 08/31/17 No Active Scripts Medications Dose Route/Sig Max Daily Dose Days Date Category Dose Instructions Albuterol Neb (Albuterol Sulfate) 1.25 Mg/3 Ml Neb 1.25 Mg NEB Q6HR NEB PRN 08/31/17 Reported Proair Hfa 8.5 GM Inh (Albuterol Sulfate) 90 Mcg/Act Aer 2 Puff INH Q4-6H PRN 08/31/17 Reported 108 mcg/actuation Advair Diskus Inh (Fluticasone-Salmeterol Inh) 250-50 Mcg/Blist Aer 1 Puff INH BID 08/31/17 Reported Rinse mouth after use. Vitamin B12 (Cyanocobalamin (Vitamin B-12)) 2,500 Mcg Tab.chew 08/31/17 Reported Zoloft (Sertraline HCl) 100 Mg Tab 100 Mg PO DAILY 08/31/17 Reported Topiramate 200 Mg Tab 200 Mg PO DAILY 08/31/17 Reported Hydrocodone-Acetaminophen 10-325 mg Tab 1 Tab PO Q6H PRN 08/31/17 Reported Coumadin (Warfarin) 4 Mg Tab 4 Mg PO DAILY 08/31/17 Reported Family History Mother had lung cancer, father with hyperlipidemia, hypertension, prostate cancer. Social History Quit smoking in 2009, 20 pack year smoking history prior to that Hx etoh abuse, remission 10+ years. (Sirisha Rand) Review of Systems Constitutional: COMPLAINS OF: Fatigue, DENIES: Fever, Weight loss, Chills, Change in appetite Respiratory: DENIES: Cough, Shortness of breath Gastrointestinal: COMPLAINS OF: Abdominal pain, Black stools, Bloody stools, Diarrhea, Nausea, Heartburn, DENIES: Constipation, Vomiting, Swelling of Abdomen , Hematemesis Integumentary: DENIES: Jaundice Hematologic/lymphatic: DENIES: Bruising Neurologic: DENIES: Headache Psychiatric: DENIES: Confusion (Sirisha Rand) GI Exam Vitals I&O Vital Signs Date Time Temp Pulse Resp B/P (MAP) Pulse Ox O2 Delivery O2 Flow Rate FiO2 09/01/17 12:00 97.1 81 17 104/61 (75) 94 09/01/17 08:00 96.9 53 18 95/61 (72) 93 09/01/17 05:43 46 105/69 (81) 09/01/17 04:36 98.1 48 17 92/60 (71) 93 09/01/17 00:44 98.1 63 18 98/61 (73) 91 08/31/17 19:59 98.1 56 17 107/69 (82) 95 08/31/17 15:16 70 17 101/55 (70) 94 08/31/17 14:10 98.3 60 18 94/56 (69) 94 08/31/17 13:41 I/O 08/31/17 08/31/17 08/31/17 09/01/17 09/01/17 09/01/17 07:00 15:00 23:00 07:00 15:00 23:00 Intake Total 35 ml 240 ml Output Total 800 ml 650 ml Balance -765 ml -410 ml Intake Oral 240 ml IV Total 35 ml Output Urine Total 800 ml 650 ml # Voids 2 # Bowel Movements 0 Imaging Last Impressions Chest X-Ray 08/31/17 1242 Signed Impressions: Service Date/Time: Thursday, August 31, 2017 12:56 - CONCLUSION: 1. Diffuse interstitial fibrosis concerning for IPF. Akshat Tapia MD Abdomen/Pelvis CT 08/31/17 0000 Signed Impressions: Service Date/Time: Thursday, August 31, 2017 11:45 - CONCLUSION: Negative for an acute process.. Parish Tapia MD FACR Laboratory Test 08/31/17 21:39 09/01/17 03:52 09/01/17 03:56 09/01/17 12:00 White Blood Count 8.1 TH/MM3 11.4 TH/MM3 Red Blood Count 4.78 MIL/MM3 4.83 MIL/MM3 Hemoglobin 14.4 GM/DL 14.8 GM/DL Hematocrit 43.7 % 44.4 % Mean Corpuscular Volume 91.4 FL 91.9 FL Mean Corpuscular Hemoglobin 30.0 PG 30.6 PG Mean Corpuscular Hemoglobin Concent 32.9 % 33.3 % Red Cell Distribution Width 15.3 % 14.8 % Platelet Count 298 TH/MM3 280 TH/MM3 Mean Platelet Volume 6.7 FL 6.8 FL Neutrophils (%) (Auto) 56.7 % 76.3 % Lymphocytes (%) (Auto) 32.0 % 16.1 % Monocytes (%) (Auto) 8.6 % 5.8 % Eosinophils (%) (Auto) 2.2 % 1.3 % Basophils (%) (Auto) 0.5 % 0.5 % Neutrophils # (Auto) 4.6 TH/MM3 8.7 TH/MM3 Lymphocytes # (Auto) 2.6 TH/MM3 1.8 TH/MM3 Monocytes # (Auto) 0.7 TH/MM3 0.7 TH/MM3 Eosinophils # (Auto) 0.2 TH/MM3 0.1 TH/MM3 Basophils # (Auto) 0.0 TH/MM3 0.1 TH/MM3 CBC Comment DIFF FINAL DIFF FINAL Differential Comment Blood Urea Nitrogen 7 MG/DL Creatinine 0.74 MG/DL Random Glucose 84 MG/DL Calcium Level 8.7 MG/DL Sodium Level 139 MEQ/L Potassium Level 4.3 MEQ/L Chloride Level 105 MEQ/L Carbon Dioxide Level 27.9 MEQ/L Anion Gap 6 MEQ/L Estimat Glomerular Filtration Rate 110 ML/MIN Prothrombin Time 29.7 SEC Prothromb Time International Ratio 2.6 RATIO Physical Examination HEENT: Normocephalic; atraumatic; no jaundice. CHEST: CTA CARDIAC: RRR ABDOMEN: Soft, nondistended, nontender; no hepatosplenomegaly; bowel sounds are present in all four quadrants. EXTREMITIES: No clubbing, cyanosis, or edema. SKIN: Normal; no rash; no jaundice. PIE MAKER: No focal deficits; alert and oriented times three. (Sirisha Rand) Assessment and Plan Plan ASSESSMENT: - Rectal bleeding x 2 days, 3 episodes of rectal bleeding consisting of "red, black, and brown" blood mixed within stool- moderate amount. Last episode yesterday around 2 am. EGD (08/04/15)---> mild gastritis in the entire examined stomach; biopsy was performed. Normal endoscopy otherwise. Retroflexed views revealed no abnormalities. 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 His last colonoscopy was about 4 years ago and he reports that he had a polyp removed. On coumadin, last had 2 days ago. INR 2.6. HH stable. 14.8/44.4. - Hypercoagulation syndrome, Hx PE, on coumadin. INR 2.6. - COPD, Depression, Seizure D/O per attending. PLAN: - Plan for EGD/Colonoscopy - Obtain consents - Clear liquids - NPO after MN - Golytely prep - Monitor labs - INR in am - If INR > 2.0 in am, notify GI - Supportive care - Further recommendations to follow based onr esults of above - Pt seen and examined by Dr. Walters and myself and this note is written on his behalf (Sirisha Rand) Physician Comments Seen and examined with DAMARIS, no active bleeding. EGD/Colonoscopy tomorrow. Monitor labs. Discussed with Dr. Ramos. Thankyou (Danisha Walters MD) Sirisha Rand Sep 01, 2017 13:19 Danisha Walters MD Sep 01, 2017 15:40
[2017-09-01] MEDS ORDERED: PHYTONADIONE 5 MG TAB PO ONE (13:45)
--- NOTE | 2017-09-01 13:48 | HHI.PR ---
Subjective Remarks No c/o rectal bleeding since admission. Objective Vitals Vital Signs Date Time Temp Pulse Resp B/P (MAP) Pulse Ox O2 Delivery O2 Flow Rate FiO2 09/01/17 12:00 97.1 81 17 104/61 (75) 94 09/01/17 08:00 96.9 53 18 95/61 (72) 93 09/01/17 05:43 46 105/69 (81) 09/01/17 04:36 98.1 48 17 92/60 (71) 93 09/01/17 00:44 98.1 63 18 98/61 (73) 91 08/31/17 19:59 98.1 56 17 107/69 (82) 95 08/31/17 15:16 70 17 101/55 (70) 94 08/31/17 14:10 98.3 60 18 94/56 (69) 94 08/31/17 13:41 Result Diagram: 09/01/17 1200 09/01/17 0352 Imaging Last Impressions Chest X-Ray 08/31/17 1242 Signed Impressions: Service Date/Time: Thursday, August 31, 2017 12:56 - CONCLUSION: 1. Diffuse interstitial fibrosis concerning for IPF. Akshat Tapia MD Abdomen/Pelvis CT 08/31/17 0000 Signed Impressions: Service Date/Time: Thursday, August 31, 2017 11:45 - CONCLUSION: Negative for an acute process.. Parish Tapia MD FACR Objective Remarks GENERAL: This is a well-nourished, well-developed patient, in no apparent distress. CARDIOVASCULAR: Regular rate and rhythm without murmurs, gallops, or rubs. RESPIRATORY: Clear to auscultation. Breath sounds equal bilaterally. No wheezes , rales, or rhonchi. GASTROINTESTINAL: Abdomen soft, non-tender, nondistended. Normal active bowel sounds MUSCULOSKELETAL: Extremities without clubbing, cyanosis, or edema. NEURO: Alert & Oriented x4 to person, place, time, situation. Moves all ext x4 A/P Problem List: (1) Lower GI bleed ICD Codes: K92.2 - Gastrointestinal hemorrhage, unspecified Plan: Lower GI bleed Patient reports rectal bleeding with clots for the past two days associated with generalized abdominal cramping no active bleeding from rectum at this time occult stool pending - Hg levle stable on serial CBCs - continue IV Protonix - Case d/w GI, Dr. Walters (09/01/17) - Pt to undergo EGD & Colonoscopy 09/02 - will give 5mg Vitamin K now - repeat INR in AM - SCDs for DVT prophylaxis - supportive care - anticipate discharge to home following endoscopy 09/02 (2) Hypercoagulation syndrome ICD Codes: D68.59 - Other primary thrombophilia Plan: - coumadin on hold - vitamin K 5mg PO once - repeat INR in AM - will give FFP 09/02 if INR above 1.5 (3) Idiopathic interstitial fibrosis of lung syndrome ICD Codes: J84.112 - Idiopathic interstitial fibrosis of lung syndrome Status: Acute Plan: - continue current outpt regimen (4) COPD (chronic obstructive pulmonary disease) ICD Codes: J44.9 - COPD (chronic obstructive pulmonary disease) Status: Chronic Plan: - continue symbicort, prn ventolin (5) Depression ICD Codes: F32.9 - Depression Status: Chronic Plan: - zoloft (6) Seizure disorder ICD Codes: G40.909 - Epilepsy, unspecified, not intractable, without status epilepticus Plan: - Topdebx Daniel Ramos DO Sep 01, 2017 13:48
[2017-09-01] MEDS: SERTRALINE HCL 100 MG TAB PO SCH (14:17)
[2017-09-01] MEDS: TOPIRAMATE 200 MG TAB PO SCH (14:17)
[2017-09-01] MEDS ORDERED: PEG (High)/E-LYTE SOLN 4000 ML BTL PO ONE (16:00)
[2017-09-01 18:36] LABS: AUTOMATED NEUTROPHIL # 6.2 TH/MM3 (1.8-7.7); BASOPHIL % 0.4 % (0.0-2.0); EOSINOPHIL # 0.1 TH/MM3 (0-0.4); EOSINOPHIL % 1.3 % (0.0-4.0); HEMATOCRIT 43.8 % (39.0-51.0); HEMO FLAGS DIFF FINAL; LYMPH % 26.3 % (9.0-44.0); LYMPHOCYTE # 2.5 TH/MM3 (1.0-4.8); MEAN CELL VOLUME 91.1 FL (80.0-100.0); MEAN CORPUSCULAR HEMOGLOBIN 31.9 PG (27.0-34.0); MEAN CORPUSCULAR HGB CONC 35.1 % (32.0-36.0); MONO % 6.3 % (0.0-8.0); NEUT % 65.7 % (16.0-70.0); PLATELET COUNT 290 TH/MM3 (150-450); RED BLOOD COUNT 4.81 MIL/MM3 (4.50-5.90); RED CELL DISTRIBUTION WIDTH 15.1 % (11.6-17.2); WHITE BLOOD COUNT 9.5 TH/MM3 (4.0-11.0)
[2017-09-01 21:23] LABS: AUTOMATED NEUTROPHIL # 5.1 TH/MM3 (1.8-7.7); BASOPHIL # 0.1 TH/MM3 (0-0.2); BASOPHIL % 0.9 % (0.0-2.0); EOSINOPHIL # 0.1 TH/MM3 (0-0.4); EOSINOPHIL % 1.4 % (0.0-4.0); HEMO FLAGS DIFF FINAL; LYMPHOCYTE # 2.6 TH/MM3 (1.0-4.8); MEAN CELL VOLUME 91.2 FL (80.0-100.0); NEUT % 58.7 % (16.0-70.0); PLATELET COUNT 281 TH/MM3 (150-450); RED BLOOD COUNT 4.94 MIL/MM3 (4.50-5.90); RED CELL DISTRIBUTION WIDTH 15.4 % (11.6-17.2); WHITE BLOOD COUNT 8.7 TH/MM3 (4.0-11.0)
[2017-09-01] MEDS: BUDESONIDE-FORMOTEROL 160/4.5 MCG INHALER INH SCH (21:42)
[2017-09-02 00:21] VITALS: BP 108/50; PULSE 80; RESP 17; TEMP 97.7; O2SAT 91
[2017-09-02] MEDS: 1/2 NS + KCL 20 MEQ INJ 1,000 ML IV SCH (00:33)
[2017-09-02] MEDS: PANTOPRAZOLE INJ 80 MG in SODIUM CHLORIDE 0.9% INJ 100 ML IV SCH (02:49)
[2017-09-02] MEDS ORDERED: CHLORHEXIDINE GLUCONATE 2 % 1 PACK (2 CLOTHS) TOPICAL PRN (04:00)
[2017-09-02] MEDS ORDERED: POVIDONE IODINE 5% (ANTISEPSIS KIT) 4 APPLICATIONS EACH NARE PRN (04:00)
[2017-09-02] MEDS ORDERED: LACTATED RINGER'S 1000 ML IV PRN (04:00)
[2017-09-02 04:25] VITALS: BP 109/69; PULSE 72; RESP 18; TEMP 97.6; O2SAT 95
[2017-09-02 07:58] LABS: AUTOMATED NEUTROPHIL # 4.8 TH/MM3 (1.8-7.7); BASOPHIL % 0.4 % (0.0-2.0); EOSINOPHIL # 0.2 TH/MM3 (0-0.4); EOSINOPHIL % 1.9 % (0.0-4.0); HEMATOCRIT 46.6 % (39.0-51.0); HEMO FLAGS DIFF FINAL; LYMPH % 29.7 % (9.0-44.0); LYMPHOCYTE # 2.4 TH/MM3 (1.0-4.8); MEAN CELL VOLUME 91.6 FL (80.0-100.0); MEAN CORPUSCULAR HEMOGLOBIN 30.6 PG (27.0-34.0); MEAN CORPUSCULAR HGB CONC 33.4 % (32.0-36.0); MONO % 8.4 % (0.0-8.0); NEUT % 59.6 % (16.0-70.0); PLATELET COUNT 291 TH/MM3 (150-450); RED BLOOD COUNT 5.09 MIL/MM3 (4.50-5.90); RED CELL DISTRIBUTION WIDTH 15.5 % (11.6-17.2)
[2017-09-02 08:00] VITALS: BP 105/57; PULSE 57; RESP 16; TEMP 96.9; O2SAT 95
[2017-09-02 08:03] LABS: INTERNATIONAL NORMALIZED RATIO 1.7 RATIO; PROTHROMBIN TIME - PATIENT 18.8 SEC (9.8-11.6)
[2017-09-02] MEDS ORDERED: ENOX150P SQ ×2 (08:57→11:54)
[2017-09-02] MEDS: TOPIRAMATE 200 MG TAB PO SCH (09:00)
[2017-09-02] MEDS: BUDESONIDE-FORMOTEROL 160/4.5 MCG INHALER INH SCH (09:00)
[2017-09-02] MEDS: SERTRALINE HCL 100 MG TAB PO SCH (09:00)
[2017-09-02] MEDS: SODIUM CHLORIDE 0.9% FLUSH 10 ML FLUSH IV FLUSH SCH (09:00)
--- NOTE | 2017-09-02 09:01 | HHI.FF ---
Face to Face Verification Diagnosis: (1) Hypercoagulation syndrome (2) Lower GI bleed Home Health Nursing Order: Medical education Medication education-adverse effect Instructions: Patient needs daily Lovenox injections with daily INR until INR greater than or equal to 2.0 Once INR equal or greater than 2.0 can stop Lovenox I have seen patient Horace Orozco on 09/02/17. My clinical findings support the need for the requested home health care services because: Injectable med education/admin Injectable med education/admin I certify that my clinical findings support that this patient is homebound because: Injectable med education/admin Post-op weakness Ida Gamboa Sep 02, 2017 09:01 Daniel Ramos DO Sep 04, 2017 11:13
--- NOTE | 2017-09-02 10:54 | GIPROC ---
[facility] [address] [facility]. [facility], [address] EGD PROCEDURE REPORT EXAM DATE: 09/02/2017 PATIENT NAME: Horace Orozco MR #: [id number] BIRTHDATE: 1960 ATTENDING: Danisha Walters MD ORDER #: [id number] CONE FORMER: Jo Orr and Shahana Eid STATUS: inpatient INDICATIONS: The patient is a 57 yr old male here for an EGD due to hematochezia PROCEDURE PERFORMED: EGD, diagnostic MEDICATIONS: None and Per Anesthesia. TOPICAL ANESTHETIC: CONSENT: The patient understands the risks and benefits of the procedure and understands that these risks include, but are not limited to: sedation, allergic reaction, infection, perforation and/or bleeding. Alternative means of evaluation and treatment include, among others: physical exam, x-rays, and/or surgical intervention. The patient elects to proceed with this endoscopic procedure. medical equipment was checked for proper function. Hand hygiene and appropriate measures for infection prevention was taken. After the risks, benefits and alternatives of the procedure were thoroughly explained, Informed consent was verified, confirmed and timeout was successfully executed by the treatment team. The patient was anesthetized with topical anesthesia and the EC-[id number] (Pedi C) endoscope was introduced through the mouth and advanced to the second portion of the duodenum. Retroflexed views revealed no abnormalities The gastroscope was then slowly withdrawn and removed. ESOPHAGUS: The mucosa of the esophagus appeared normal. STOMACH: There was erythematous moderate gastritis in the gastric antrum. DUODENUM: The duodenal mucosa appeared normal in the bulb and second portion of the duodenum. ADVERSE EVENTS: There were no complications. IMPRESSIONS: 1. The esophagus appeared normal 2. There was erythematous gastritis in the gastric antrum 3. Normal duodenal mucosa in the bulb and second portion of the duodenum 4. Retroflexed views revealed no abnormalities RECOMMENDATIONS: 1. Anti-reflux regimen 2. Continue PPI PATIENT CONDITION: stable DISPOSITION: Inpatient REPEAT EXAM: Return 1 year EGD Danisha Walters MD eSigned: Danisha Walters MD 09/02/2017 10:54 AM cc:
--- NOTE | 2017-09-02 10:56 | GIPROC ---
[facility] [address] [facility]. [facility], [address] COLONOSCOPY PROCEDURE REPORT EXAM DATE: 09/02/2017 PATIENT NAME: Horace Orozco MR #: [id number] BIRTHDATE: 1960 ENDOSCOPIST: Danisha Walters MD ORDER #: [id number] [employer] MA[employer]: Jo Orr and Shahana Eid STATUS: inpatient INDICATIONS: The patient is a 57 yr old male here for a colonoscopy due to hematochezia PROCEDURE PERFORMED: Colonoscopy, diagnostic MEDICATIONS: None and Per Anesthesia. PREP QUALITY: The Mcalpin Bowel Prep Score was Right colon 2, Mid colon 3, and Left colon 3. Total = 8. PREP TYPE:GoLytely ESTIMATED BLOOD LOSS: None CONSENT: The patient understands the risks and benefits of the procedure and understands that these risks include, but are not limited to: sedation, allergic reaction, infection, perforation and/or bleeding. Alternative means of evaluation and treatment include, among others: physical exam, x-rays, and/or surgical intervention. The patient elects to proceed with this endoscopic procedure. medical equipment was checked for proper function. Hand hygiene and appropriate measures for infection prevention was taken. After the risks, benefits and alternatives of the procedure were thoroughly explained, Informed consent was verified, confirmed and timeout was successfully executed by the treatment team. A digital exam revealed external hemorrhoids The Pentax EC-[id number] endoscope was introduced through the anus and advanced to the cecum, which was identified by both the appendix and ileocecal valve. The instrument was then slowly withdrawn as the colon was fully examined. COLON FINDINGS: Moderate diverticulosis was noted in the sigmoid colon. No bleeding was noted from the diverticulosis. Retroflexed views revealed internal hemorrhoids and Retroflexed views revealed medium internal hemorrhoids The scope was then completely withdrawn from the patient and the procedure terminated. PROCEDURE WITHDRAWAL TIME:6minutes ADVERSE EVENTS: There were no complications. IMPRESSIONS: 1. Moderate diverticulosis was noted in the sigmoid colon 2. Retroflexed views revealed internal hemorrhoids 3. Retroflexed views revealed medium internal hemorrhoids 4. Revealed external hemorrhoids RECOMMENDATIONS: 1. Benefiber 2 tsp daily 2. Continue surveillance 3. Yearly hemoccult 4. No seeds, nuts and popcorn in diet RECALL: Return 5 years Colonoscopy Danisha Walters MD eSigned: Danisha Walters MD 09/02/2017 10:56 AM cc:
[2017-09-02] MEDS ORDERED: *MEPERIDINE 25 MG INJ VIAL PERIprocedural Use ONLY ONE (11:06)
[2017-09-02] MEDS ORDERED: DO NOT ADM ANY ANTICOAGULANT DRUGS PRN (11:15)
[2017-09-02] MEDS ORDERED: PANT20 PO (11:56)
[2017-09-02 12:00] VITALS: BP 114/71; PULSE 60; RESP 17; TEMP 97; O2SAT 93
[2017-09-02] MEDS ORDERED: ePHEDrine/NS 25 MG/5 ML SYR IV ONE (12:00)
[2017-09-02] MEDS ORDERED: PROPOFOL 200 MG/20 ML AMP IV ONE (12:00)
[2017-09-02] MEDS ORDERED: LIDOCAINE HCL 1% PF 5 ML AMPULE OTHER ONE (12:00)
[2017-09-02] MEDS ORDERED: GLYCOPYRROLATE 1 MG/5 ML SYRINGE IV PUSH ONE (12:00)
--- NOTE | 2017-09-02 12:03 | HHI.DS ---
Discharge Summary Admission Date Aug 31, 2017 at 12:50 Discharge Date: Sep 02, 2017 Admitting Diagnosis (1) Lower GI bleed ICD Codes: K92.2 - Gastrointestinal hemorrhage, unspecified (2) Hypercoagulation syndrome ICD Codes: D68.59 - Other primary thrombophilia (3) Idiopathic interstitial fibrosis of lung syndrome ICD Codes: J84.112 - Idiopathic interstitial fibrosis of lung syndrome Status: Acute (4) COPD (chronic obstructive pulmonary disease) ICD Codes: J44.9 - COPD (chronic obstructive pulmonary disease) Status: Chronic (5) Depression ICD Codes: F32.9 - Depression Status: Chronic (6) Seizure disorder ICD Codes: G40.909 - Epilepsy, unspecified, not intractable, without status epilepticus Consultants Dr. Walters Procedures 09/02/17 EGD/colonoscopy with Dr. Walters Brief History This is a 57-year-old male patient with past medical history which includes sleep apnea does use CPAP, idiopathic pulmonary fibrosis, emphysema, pulmonary embolism bilaterally, DVT, hypercoagulation, multiple concussions, migraine, idiopathic peripheral neuropathy, cervical HNP, lumbar H&P, B12 deficiency, alcohol abuse in remission, GERD, gastroparesis, hyperlipidemia, obesity and colon polyps (adenoma). Patient presents to the ER today with rectal bleeding. Patient reports that his bleeding started last evening associated with diffuse abdominal cramping, some nausea, and some pain with bowel movements. Patient has also been passing blood clots into the toilet. He also has associated lightheadedness and dizziness. He is on Coumadin for history of pulmonary embolism and hypercoagulable state. His last colonoscopy was 2010. CBC/BMP: 09/02/17 0713 09/01/17 0352 Significant Findings Laboratory Tests Test 08/31/17 10:30 08/31/17 21:39 09/01/17 03:52 09/01/17 03:56 Mean Platelet Volume 6.8 FL (7.0-11.0) 6.7 FL (7.0-11.0) Neutrophils (%) (Auto) 71.3 % (16.0-70.0) Prothrombin Time 27.8 SEC (9.8-11.6) 29.7 SEC (9.8-11.6) Activated Partial Thromboplast Time 51.5 SEC (24.3-30.1) Albumin 3.3 GM/DL (3.4-5.0) Monocytes (%) (Auto) 8.6 % (0.0-8.0) Test 09/01/17 12:00 09/01/17 18:15 09/01/17 21:13 09/02/17 07:13 White Blood Count 11.4 TH/MM3 (4.0-11.0) Mean Platelet Volume 6.8 FL (7.0-11.0) 6.8 FL (7.0-11.0) 6.9 FL (7.0-11.0) 6.6 FL (7.0-11.0) Neutrophils (%) (Auto) 76.3 % (16.0-70.0) Neutrophils # (Auto) 8.7 TH/MM3 (1.8-7.7) Monocytes (%) (Auto) 9.0 % (0.0-8.0) 8.4 % (0.0-8.0) Prothrombin Time 18.8 SEC (9.8-11.6) Imaging Last Impressions Chest X-Ray 08/31/17 1242 Signed Impressions: Service Date/Time: Thursday, August 31, 2017 12:56 - CONCLUSION: 1. Diffuse interstitial fibrosis concerning for IPF. Akshat Tapia MD Abdomen/Pelvis CT 08/31/17 0000 Signed Impressions: Service Date/Time: Thursday, August 31, 2017 11:45 - CONCLUSION: Negative for an acute process.. Parish Tapia MD FACR PE at Discharge GENERAL: This is a well-nourished, well-developed patient, in no apparent distress. CARDIOVASCULAR: Regular rate and rhythm without murmurs, gallops, or rubs. RESPIRATORY: Clear to auscultation. Breath sounds equal bilaterally. No wheezes , rales, or rhonchi. GASTROINTESTINAL: Abdomen soft, non-tender, nondistended. Normal active bowel sounds MUSCULOSKELETAL: Extremities without clubbing, cyanosis, or edema. NEURO: Alert & Oriented x4 to person, place, time, situation. Moves all ext x4 Hospital Course Lower GI bleed Patient reports rectal bleeding with clots for the past two days associated with generalized abdominal cramping no active bleeding from rectum at this time occult stool pending serial H&H - stable Protonix drip initiated by ER GI consult discussed with GI [employer] patient given clear liquids today NPO after midnight IVF S/P EGD/colonoscopy 09/02/[address] Walters Impression: 1. The esophagus appeared normal 2. There was erythematous gastritis in the gastric antrum 3. Normal duodenal mucosa in the bulb and second portion of the duodenum 4. Retroflexed views revealed no abnormalities GI recommends: 1. Anti-reflux regimen 2. Continue PPI 3. Return 1 year EGD idiopathic pulmonary fibrosis, emphysema continue home regiment Hypercoagulation pulmonary embolism bilaterally, DVT hold Coumadin at this time recheck INR today 1.7 will DC patient home with Lovenox 1.5mg/kg daily until INR > or equal to 2.0 plan for [facility] to assist with Lovenox administration/teaching and daily INR monitoring until INR equal or greater than 2.0 DVT prophylaxis with SCDs avoid chemical DVT prophylaxis due to GI bleed Pt Condition on Discharge: Stable Discharge Disposition: Disch w/ Home Health Serv Discharge Instructions DIET: Follow Instructions for: As Tolerated, No Restrictions Activities you can perform: Regular-No Restrictions Follow up Referrals: Gastroenterology - 6 Weeks with Danisha Walters MD PCP Follow-up - [address] Uriarte New Medications: Enoxaparin Inj (Lovenox Inj) 150 Mg/Ml Syr 150 MG SQ DAILY for Blood Clot Prevention, #7 SYRINGE 0 Refills Monitor INR daily. Stop taking once INR equal or greater thatn 2.0 Pantoprazole (Protonix) 20 Mg Tab 20 MG PO DAILY for Reflux, #30 TAB 0 Refills Continued Medications: Albuterol 8.5 GM Inh (Proair Hfa 8.5 GM Inh) 90 Mcg/Act Aer 2 PUFF INH Q4-6H PRN for SHORTNESS OF BREATH, #1 INHALER 0 Refills 108 mcg/actuation Albuterol Neb (Albuterol Neb) 1.25 Mg/3 Ml Neb 1.25 MG NEB Q6HR NEB PRN for SHORTNESS OF BREATH, #50 NEBULE 0 Refills Cyanocobalamin (Vitamin B-12) (Vitamin B12) 2,500 Mcg Tab.chew Fluticasone-Salmeterol Inh (Advair Diskus Inh) 250-50 Mcg/Blist Aer 1 PUFF INH BID, #1 INHALER 0 Refills Rinse mouth after use. Hydrocodone-Acetaminophen (Hydrocodone-Acetaminophen) 10-325 mg Tab 1 TAB PO Q6H PRN for PAIN, TAB 0 Refills Sertraline (Zoloft) 100 Mg Tab 100 MG PO DAILY, #30 TAB 0 Refills Topiramate (Topiramate) 200 Mg Tab 200 MG PO DAILY for Control Seizures, #60 TAB 0 Refills Warfarin (Coumadin) 4 Mg Tab 4 MG PO DAILY for Prevent Blood Clot, #30 TAB 0 Refills Additional Information Patient examined. Assessment and plan formulated with Ida Gamboa PA-C. I agree with the above. Ida Gamboa Sep 02, 2017 12:03 Daniel Ramos DO Sep 04, 2017 11:14
[2017-09-02] MEDS ORDERED: ENOXAPARIN SODIUM 150 MG/ML SYRINGE SQ ONE (12:45)
--- NOTE | 2017-09-02 15:05 | HHI.DCPOC ---
Discharge Care Plan Diagnosis: (1) Hypercoagulation syndrome (2) Idiopathic interstitial fibrosis of lung syndrome Goals to Promote Your Health * To prevent worsening of your condition and complications * To maintain your health at the optimal level Directions to Meet Your Goals Take your medications as prescribed Follow your dietary instruction Follow activity as directed Keep your appointments as scheduled Take your immunizations and boosters as scheduled If your symptoms worsen call your PCP, if no PCP go to Urgent Care Center or Emergency Room Smoking is Dangerous to Your Health. Avoid second hand smoke Call the 24-hour hour crisis hotline for domestic abuse at Ida Gamboa Sep 02, 2017 15:05 Daniel Ramos DO Sep 04, 2017 11:14
== END 2017-09-02 15:19 | disposition home health service (06) | DRG 378 ==
LOC: NEPE 09:57 → NEDA 12:50 → NEPFCDU 14:06 → N07A 09-01 07:53
PROVIDERS: ADMIT Hospitalist; ATTEND Hospitalist
PROC: 0DJD8ZZ Inspection of Lower Intestinal Tract, Via Natural or Artificial Opening Endoscopic (ICD-10-PCS; principal; 2017-09-02 10:15)
PROC: 0DJ08ZZ Inspection of Upper Intestinal Tract, Via Natural or Artificial Opening Endoscopic (ICD-10-PCS; 2017-09-02 10:15)
DX: K92.2 Gastrointestinal hemorrhage, unspecified (principal); D68.59 Other primary thrombophilia; J84.112 Idiopathic pulmonary fibrosis; J43.9 Emphysema, unspecified; K31.84 Gastroparesis; I10 Essential (primary) hypertension; F32.9 Major depressive disorder, single episode, unspecified; M19.90 Unspecified osteoarthritis, unspecified site; Z86.711 Personal history of pulmonary embolism; Z79.01 Long term (current) use of anticoagulants; E78.00 Pure hypercholesterolemia, unspecified; K21.9 Gastro-esophageal reflux disease without esophagitis; Z86.14 Personal history of Methicillin resistant Staphylococcus aureus infection; Z86.010 Personal history of colon polyps; G47.33 Obstructive sleep apnea (adult) (pediatric); F10.11 Alcohol abuse, in remission; G60.9 Hereditary and idiopathic neuropathy, unspecified; G43.909 Migraine, unspecified, not intractable, without status migrainosus; E66.9 Obesity, unspecified; E53.8 Deficiency of other specified B group vitamins; Z98.1 Arthrodesis status; Z87.891 Personal history of nicotine dependence; Z80.42 Family history of malignant neoplasm of prostate; Z80.1 Family history of malignant neoplasm of trachea, bronchus and lung; Z82.3 Family history of stroke; Z83.3 Family history of diabetes mellitus; G40.909 Epilepsy, unspecified, not intractable, without status epilepticus; K29.70 Gastritis, unspecified, without bleeding; K64.8 Other hemorrhoids; K64.4 Residual hemorrhoidal skin tags
CPT/HCPCS: 71010; 74177; 80048; 80053; 82272; 85025; 85610; 85730; 86850; 86900; 86901; 93005; 96365; 96366; 96372; 96375; 96376; C9113; G0378; J1650; J2175; J2270; J2405; Q9967